=== PATIENT | female | born 1945 | race African-American/Black ===

== ENCOUNTER 2023-02-10 09:19 | Emergency (ER) | payer OTHER ==
[~2023-02-10] VITALS: Ht 167.6 cm; Wt 65.8 kg
[2023-02-10] MEDS ORDERED: NAMENDA10 MG (09:41)
== END 2023-02-10 13:07 | disposition home or self-care (01) ==
LOC: ER 09:19
DX: R42 Dizziness and giddiness (principal); Z20.822 Contact with and (suspected) exposure to COVID-19

== ENCOUNTER 2023-10-11 10:50 | Emergency (ER) | payer OTHER ==
[~2023-10-11] VITALS: Ht 154.9 cm; Wt 59.0 kg
[~2023-10-11 10:50] MED LIST: NAMENDA10 MG
[2023-10-11] MEDS ORDERED: 0.9 % SODIUM CHLORIDE 500 ML IV SCH (12:00)
[2023-10-11 12:01] LABS: HEMATOCRIT 38.7 % (36.0-45.00); HEMOGLOBIN 12.8 g/dL (12.0-15.00); MEAN CORPUSCULAR HEMOGLOBIN 28.7 pg (27.00-32.0); PLATELET COUNT 251 K/uL (150-450); RED BLOOD COUNT 4.44 M/uL (4.00-6.00); RED CELL DISTRIBUTION WIDTH 14.1 % (11.5-14.5)
[2023-10-11 13:07] LABS: CALCIUM 9.6 mg/dL (8.5-10.1); CREATININE SERUM 0.94 mg/dL (0.55-1.02); GFR 57.59; POTASSIUM 3.8 mEq/L (3.5-5.1)
[2023-10-11 15:53] LABS: PH,URINE 5.5 (5.0-8.0); URINE APPEARANCE Turbid; URINE BILIRRUBIN Negative (NEGATIVE); URINE BLOOD Small; URINE COLOR Yellow; URINE GLUCOSE Negative (NEGATIVE); URINE LEUKOCYTE Large; URINE NITRATE Negative; URINE PROTEIN Trace (NEGATIVE); URINE UROBILINOGEN 0.2 E.U./dl
[2023-10-11 15:54] LABS: URINE BACTERIA 4819.3 uL (0.0-1933); URINE EPITHELIAL CELLS 199.7 uL (0.0-38.8); URINE WBC 1624.6 uL (0.0-23.2)
== END 2023-10-11 16:37 | disposition home or self-care (01) ==
LOC: ER 10:50
PROVIDERS: Emergency Medicine
DX: N39.0 Urinary tract infection, site not specified (principal); R30.0 Dysuria; G30.8 Other Alzheimer's disease; F02.80 Dementia in other diseases classified elsewhere, unspecified severity, without behavioral disturbance, psychotic disturbance, mood disturbance, and anxiety; Z20.822 Contact with and (suspected) exposure to COVID-19
CPT/HCPCS: 36415; 96365; 96366; 99282; J7042

== ENCOUNTER → 2024-08-10 | Emergency (ER) | payer OTHER ==
[~2024-08-10] VITALS: Ht 149.9 cm; Wt 62.1 kg
[~2024-08-10] MED LIST changes: +0.9 % SODIUM CHLORIDE 500 ML IV ONE; +FAMOTIDINE/PF 20 MG/2 ML VIAL IV ONE
[2024-08-10 17:33] LABS: HEMATOCRIT 35.8 % (36.0-45.00); HEMOGLOBIN 11.9 g/dL (12.0-15.00); MEAN CELL VOLUME 85.1 fL (80.00-100.00); MEAN CORPUSCULAR HEMOGLOBIN 28.2 pg (27.00-32.0); MEAN CORPUSCULAR HGB CONC 33.1 g/dl (32.0-36.0); PLATELET COUNT 248 K/uL (150-450); RED BLOOD COUNT 4.21 M/uL (4.00-6.00); RED CELL DISTRIBUTION WIDTH 14.4 % (11.5-14.5)
[2024-08-10 17:46] LABS: ALBUMIN 2.7 gm/dL (3.4-5.0); BILIRUBIN TOTAL 0.51 mg/dL (0.3-1.2); CREATININE SERUM 0.83 mg/dL (0.55-1.02); GFR 66.31; GLOBULINA 4.7 G/DL (2.4-3.5); POTASSIUM 3.43 mEq/L (3.5-5.1); TOTAL PROTEIN 7.4 gm/dL (6.4-8.2)
== END | disposition home or self-care (01) ==
LOC: ER 15:03
PROVIDERS: Emergency Medicine
DX: F03.90 Unspecified dementia, unspecified severity, without behavioral disturbance, psychotic disturbance, mood disturbance, and anxiety (principal); R19.7 Diarrhea, unspecified; R42 Dizziness and giddiness